=== PATIENT | female | born 1945 | race Two or more races ===

== ENCOUNTER 2021-02-25 09:30 | Inpatient (IN) | payer MEDICARE, OTHER ==
[~2021-02-25] VITALS: Ht 165.1 cm; Wt 80.7 kg
[2021-02-25 11:06] LABS: Basophils # (auto) 0 10 ^3/uL (0-0.2); Basophils % (auto) 0.2 % (0.0-2.0); Eosinophils # (auto) 0.1 10 ^3/uL (0-0.8); Hematocrit 52.7 % (36.0-46.0); Mean Corpuscular Volume 96.8 fL (80.0-100.0); Nucleated Red Blood Cells % 0.1 %
[2021-02-25 11:08] LABS: Eosinophils % (auto) 0.6 % (0.0-7.0); Hemoglobin 18.4 g/dL (12.2-16.2); Lymphocytes % (auto) 6.4 % (10.0-50.0); Mean Corpuscular Hemoglobin 33.8 pg (28.0-32.0); Monocytes # (auto) 1.1 10 ^3/uL (0-1.3); Monocytes % (auto) 6.5 % (0.0-12.0); Neutrophils # (auto) 14.2 10 ^3/uL (1.6-8.6); Neutrophils % (auto) 86.3 % (37.0-80.0); Red Blood Cells 5.44 10^6/uL (4.0-5.20); Red Cell Distribution Width 13.6 % (11.8-14.3); White Blood Cell 16.4 10^3/uL (4.4-10.8)
[2021-02-25 11:37] LABS: Potassium 3.8 mmol/L (3.5-5.1)
[2021-02-25 11:43] LABS: Albumin 3.3 g/dL (3.4-5.0); BUN/Creatinine Ratio 25.4; Bilirubin, Total 0.4 mg/dL (0.2-1.0); Calcium 8.8 mg/dL (8.5-10.1); Total Protein 7.6 g/dL (6.4-8.2)
[2021-02-25] MEDS ORDERED: SODIUM CHLORIDE 0.9% 1,000 ML IV ONE (13:45)
[2021-02-25 16:28] LABS: Urine Bacteria MOD /hpf (None Seen); Urine Blood Negative /uL (Negative); Urine Mucus FEW (None Seen); Urine Specific Gravity 1.024 (1.001-1.035); Urine WBC 4 /hpf (0 - 5)
[2021-02-25] MEDS ORDERED: metroNIDAZOLE 500MG/100ML 100 ML IV ONE (18:30)
[2021-02-25] MEDS ORDERED: VANCOMYCIN HCL 500MG/5ML ORAL SOL PO SCH (22:00)
[2021-02-25] MEDS ORDERED: ONDANSETRON HCL 4 MG/2 ML VIAL IV PRN (22:45)
[2021-02-25] MEDS ORDERED: ACETAMINOPHEN 325 MG TAB PO PRN (22:45)
[2021-02-25] MEDS ORDERED: NITROGLYCERIN 0.4 MG SL TAB SL PRN (22:45)
[2021-02-25] MEDS ORDERED: MORPHINE SULF INJ 2 MG/ML SYRINGE 1ML IV PRN (22:45)
[2021-02-25] MEDS ORDERED: HYDROcodone-ACET 5/325MG TAB PO PRN (22:45)
[2021-02-26] VITALS (7 sets, daily range): BP systolic 105–122; BP diastolic 43–66
[2021-02-26] MEDS: SODIUM CHLORIDE 0.9% 1,000 ML IV SCH ×2 (00:07→16:41)
[2021-02-26] MEDS ORDERED: ASPI-231 PO (02:24)
[2021-02-26] MEDS ORDERED: SIMV-13 PO (02:24)
[2021-02-26] MEDS ORDERED: POM PO (02:24)
[2021-02-26] MEDS ORDERED: LEVO25TA6 PO (02:24)
[2021-02-26] MEDS ORDERED: CHOL100047 PO (02:24)
[2021-02-26] MEDS ORDERED: [UNRECOGNIZED DRUG - CODE] PO (02:24)
[2021-02-26] MEDS ORDERED: OMEG1CAP31 PO (02:24)
[2021-02-26] MEDS: metroNIDAZOLE 500MG/100ML 100 ML IV SCH ×3 (05:52→21:39)
[2021-02-26] MEDS: SODIUM CHLOR 0.9% PF (SALINE LOCK) 10ML VIAL/SYR IV SCH ×3 (05:52→21:40)
[2021-02-26 06:05] LABS: Basophils # (auto) 0 10 ^3/uL (0-0.2); Basophils % (auto) 0.1 % (0.0-2.0); Eosinophils # (auto) 0.2 10 ^3/uL (0-0.8); Eosinophils % (auto) 1.4 % (0.0-7.0); Hematocrit 46.3 % (36.0-46.0); Hemoglobin 16.1 g/dL (12.2-16.2); Lymphocytes # (auto) 1.4 10 ^3/uL (0.4-5.4); Lymphocytes % (auto) 11.4 % (10.0-50.0); Mean Corpuscular Hemoglobin 33.9 pg (28.0-32.0); Mean Corpuscular Hgb Conc. 34.9 g/dL (32.0-36.0); Mean Corpuscular Volume 97.1 fL (80.0-100.0); Monocytes # (auto) 1.2 10 ^3/uL (0-1.3); Monocytes % (auto) 9.9 % (0.0-12.0); Neutrophils # (auto) 9.2 10 ^3/uL (1.6-8.6); Neutrophils % (auto) 77.2 % (37.0-80.0); Red Blood Cells 4.76 10^6/uL (4.0-5.20); Red Cell Distribution Width 13.4 % (11.8-14.3); White Blood Cell 11.9 10^3/uL (4.4-10.8)
[2021-02-26 06:16] LABS: Potassium 3.8 mmol/L (3.5-5.1)
[2021-02-26 06:24] LABS: Albumin 2.7 g/dL (3.4-5.0); BUN/Creatinine Ratio 20.3; Bilirubin, Total 0.4 mg/dL (0.2-1.0); Calcium 8.3 mg/dL (8.5-10.1); Total Protein 6.5 g/dL (6.4-8.2)
[2021-02-26] MEDS ORDERED: cefTRIAXone 1GM/50ML D5W 50 ML IV SCH (09:00)
[2021-02-26] MEDS: ZINC SULFATE 220mg CAP or TAB PO SCH (09:13)
[2021-02-26] MEDS: ENOXAPARIN SOD 40 MG/0.4 ML SYRINGE SC SCH (09:13)
[2021-02-26] MEDS: MULTIPLE VITAMIN TAB PO SCH (09:13)
[2021-02-26] MEDS: ASCORBIC ACID 500 MG TAB PO SCH ×2 (09:14→21:39)
[2021-02-26] MEDS: FAMOTIDINE 20 MG TAB PO SCH ×2 (09:14→21:39)
[2021-02-26] MEDS: VANCOMYCIN HCL 125MG/5ML ORAL SOL PO SCH ×2 (17:25→21:40)
[2021-02-27 05:00] VITALS: BP 102/52
[2021-02-27] MEDS: SODIUM CHLOR 0.9% PF (SALINE LOCK) 10ML VIAL/SYR IV SCH ×3 (05:54→21:34)
[2021-02-27] MEDS: metroNIDAZOLE 500MG/100ML 100 ML IV SCH ×3 (05:54→21:18)
[2021-02-27] MEDS: VANCOMYCIN HCL 125MG/5ML ORAL SOL PO SCH ×4 (05:55→21:20)
[2021-02-27 09:00] VITALS: BP 99/53
[2021-02-27] MEDS: SODIUM CHLORIDE 0.9% 1,000 ML IV SCH (09:10)
[2021-02-27] MEDS: FAMOTIDINE 20 MG TAB PO SCH ×2 (09:10→21:19)
[2021-02-27] MEDS: ENOXAPARIN SOD 40 MG/0.4 ML SYRINGE SC SCH (09:10)
[2021-02-27] MEDS: ZINC SULFATE 220mg CAP or TAB PO SCH (09:11)
[2021-02-27] MEDS: MULTIPLE VITAMIN TAB PO SCH (09:11)
[2021-02-27] MEDS: ASCORBIC ACID 500 MG TAB PO SCH ×2 (09:11→21:19)
[2021-02-27] MEDS: LACTATED RINGER'S 1,000 ML IV SCH ×2 (10:28→21:33)
[2021-02-27 13:00] VITALS: BP 130/76
[2021-02-27 17:00] VITALS: BP 112/56
[2021-02-27 22:00] VITALS: BP 144/62
[2021-02-27] MEDS ORDERED: ATORVASTATIN 20 MG TAB PO SCH (22:00)
[2021-02-28] MEDS: LACTATED RINGER'S 1,000 ML IV SCH ×2 (02:15→06:39)
[2021-02-28 05:00] VITALS: BP 126/71
[2021-02-28] MEDS: metroNIDAZOLE 500MG/100ML 100 ML IV SCH ×2 (05:46→13:24)
[2021-02-28] MEDS: VANCOMYCIN HCL 125MG/5ML ORAL SOL PO SCH ×2 (05:47→11:33)
[2021-02-28] MEDS: SODIUM CHLOR 0.9% PF (SALINE LOCK) 10ML VIAL/SYR IV SCH ×2 (05:47→12:35)
[2021-02-28] MEDS ORDERED: LEVOTHYROXINE SODIUM 25 MCG TAB PO SCH (07:00)
[2021-02-28 08:30] VITALS: BP 130/75
[2021-02-28] MEDS: FAMOTIDINE 20 MG TAB PO SCH (10:16)
[2021-02-28] MEDS: ZINC SULFATE 220mg CAP or TAB PO SCH (10:16)
[2021-02-28] MEDS: ASCORBIC ACID 500 MG TAB PO SCH (10:16)
[2021-02-28] MEDS: ENOXAPARIN SOD 40 MG/0.4 ML SYRINGE SC SCH (10:16)
[2021-02-28] MEDS: MULTIPLE VITAMIN TAB PO SCH (10:16)
[2021-02-28 12:23] VITALS: BP 142/77
== END 2021-02-28 17:10 | disposition home or self-care (01) | DRG 872 ==
LOC: ER 09:30 → EDBD 09:30 → WEST WING 22:40
PROVIDERS: ADMIT Nurse Practitioner Family; ATTEND Family Medicine
DX: A41.9 Sepsis, unspecified organism (principal); A04.72 Enterocolitis due to Clostridium difficile, not specified as recurrent; E44.1 Mild protein-calorie malnutrition; K57.92 Diverticulitis of intestine, part unspecified, without perforation or abscess without bleeding; N39.0 Urinary tract infection, site not specified; I10 Essential (primary) hypertension; E03.9 Hypothyroidism, unspecified; E86.0 Dehydration; F17.210 Nicotine dependence, cigarettes, uncomplicated; Z90.710 Acquired absence of both cervix and uterus; Z98.51 Tubal ligation status; Z90.49 Acquired absence of other specified parts of digestive tract; Z20.822 Contact with and (suspected) exposure to COVID-19; Z68.27 Body mass index [BMI] 27.0-27.9, adult
CPT/HCPCS: 36415; 71045; 74176; 80053; 81001; 84443; 85025; 85049; 87045; 87086; 87426; 87427; 87493; 93005; 96361; 96365; 96367; G0378; J0696; J2405; J3490

== ENCOUNTER 2023-04-06 11:04 | Inpatient (IN) | payer BC, OTHER ==
[~2023-04-06] VITALS: Ht 165.1 cm; Wt 80.1 kg
[~2023-04-06 11:04] MED LIST: ASPI1TAB20 PO; CHOL100047 PO; LEVO25TA6 PO; OMEG-28 PO; POM PO; SIMV40TA18 PO; [UNRECOGNIZED DRUG - CODE] PO
[2023-04-06 11:55] LABS: Basophils # (auto) 0 10 ^3/uL (0-0.2); Eosinophils # (auto) 0.1 10 ^3/uL (0-0.8); Hemoglobin 18.1 g/dL (12.2-16.2); Lymphocytes # (auto) 1.8 10 ^3/uL (0.4-5.4); Neutrophils % (auto) 77.5 % (37.0-80.0); Red Cell Distribution Width 14.3 % (11.8-14.3)
[2023-04-06 11:56] LABS: Basophils % (auto) 0.3 % (0.0-2.0); Hematocrit 53.4 % (36.0-46.0); Lymphocytes % (auto) 15.4 % (10.0-50.0); Mean Corpuscular Hemoglobin 32.8 pg (28.0-32.0); Mean Corpuscular Hgb Conc. 33.9 g/dL (32.0-36.0); Mean Corpuscular Volume 96.9 fL (80.0-100.0); Monocytes # (auto) 0.7 10 ^3/uL (0-1.3); Monocytes % (auto) 5.8 % (0.0-12.0); Neutrophils # (auto) 9.2 10 ^3/uL (1.6-8.6); Red Blood Cells 5.52 10^6/uL (4.0-5.20); White Blood Cell 11.9 10^3/uL (4.4-10.8)
[2023-04-06 12:06] LABS: Albumin 3.6 g/dL (3.4-5.0); Calcium 9.6 mg/dL (8.5-10.1); Potassium 4.6 mmol/L (3.5-5.1)
[2023-04-06 12:09] LABS: BUN/Creatinine Ratio 19.5 (10.0-20.0); Bilirubin, Total 0.6 mg/dL (0.2-1.0); Total Protein 7.5 g/dL (6.4-8.2)
[2023-04-06 12:23] LABS: INR 1.09 (0.9-1.15); Prothrombin Time 11.4 sec (9.3-11.8)
[2023-04-06] MEDS ORDERED: IOHEXOL 350 MG/ML 100ML IJ ONE (13:55)
[2023-04-06] MEDS ORDERED: IPRATROPIUM BROM 0.5 MG/2.5ML INH SOL NEB PRN (15:00)
[2023-04-06] MEDS ORDERED: IPRATROPIUM BROM 0.5 MG/2.5ML INH SOL NEB SCH (15:00)
[2023-04-06] MEDS ORDERED: ALBUTEROL SULF 2.5 MG/0.5ML(0.5%) NEB SOLN NEB PRN (15:00)
[2023-04-06] MEDS ORDERED: ALBUTEROL SULF 2.5 MG/0.5ML(0.5%) NEB SOLN NEB SCH (15:00)
[2023-04-06 15:09] VITALS: BP 146/86; PULSE 119; RESP 18; TEMP 98.1; O2SAT 94
[2023-04-06 15:14] VITALS: O2SAT 94; O2SAT 99
[2023-04-06] MEDS ORDERED: HYDROcodone-ACET 5/325MG TAB PO PRN (15:15)
[2023-04-06] MEDS ORDERED: ACETAMINOPHEN 325 MG TAB PO PRN (15:15)
[2023-04-06] MEDS ORDERED: ONDANSETRON HCL 4 MG/2 ML VIAL IV PRN (15:15)
[2023-04-06] MEDS ORDERED: DOCUSATE SOD 100 MG CAP PO PRN (15:15)
[2023-04-06] MEDS: predniSONE 20 MG TAB PO SCH (15:48)
[2023-04-06 18:20] VITALS: PULSE 104; RESP 72; O2SAT 95
[2023-04-06 18:38] VITALS: PULSE 20; RESP 22; O2SAT 96
[2023-04-06] MEDS: IPRATROPIUM BROM 0.5 MG/2.5ML INH SOL NEB SCH (18:47)
[2023-04-06] MEDS: ALBUTEROL SULF 2.5 MG/0.5ML(0.5%) NEB SOLN NEB SCH (18:47)
[2023-04-06] MEDS: FATTY ACIDS PO SCH (21:28)
[2023-04-06] MEDS: SODIUM CHLOR 0.9% PF (SALINE LOCK) 10ML VIAL/SYR IV SCH (21:28)
[2023-04-06] MEDS: CHOLECALCIFEROL (VITD3) 1,000UNIT=25mCg TAB PO SCH (21:28)
[2023-04-06] MEDS: OMEGA PO SCH (21:28)
[2023-04-06] MEDS: ATORVASTATIN 20 MG TAB PO SCH (21:28)
[2023-04-07] VITALS (12 sets, daily range): PULSE 85–103; RESP 15–27; O2SAT 93–97
[2023-04-07] MEDS: ALBUTEROL SULF 2.5 MG/0.5ML(0.5%) NEB SOLN NEB SCH ×5 (00:37→23:48)
[2023-04-07] MEDS: IPRATROPIUM BROM 0.5 MG/2.5ML INH SOL NEB SCH ×5 (00:38→23:48)
[2023-04-07 05:24] LABS: Urine Bacteria NONE SEEN /hpf (None Seen); Urine Blood Negative /uL (Negative); Urine Clarity Clear (Clear); Urine Color Yellow (Yellow); Urine Protein, UAD Negative (Negative); Urine Specific Gravity 1.032 (1.001-1.035); Urine Urobilinogen Normal (Negative); Urine WBC <1 /hpf (0 - 5)
[2023-04-07] MEDS: SODIUM CHLOR 0.9% PF (SALINE LOCK) 10ML VIAL/SYR IV SCH ×3 (06:05→22:18)
[2023-04-07] MEDS: LEVOTHYROXINE SODIUM 25 MCG TAB PO SCH (06:30)
[2023-04-07] MEDS: predniSONE 20 MG TAB PO SCH (12:00)
[2023-04-07] MEDS: ENOXAPARIN SOD 40 MG/0.4 ML SYRINGE SC SCH (12:00)
[2023-04-07] MEDS: ASPirin-EC 81 mg tab PO SCH (12:00)
[2023-04-07] MEDS: CHOLECALCIFEROL (VITD3) 1,000UNIT=25mCg TAB PO SCH ×2 (12:00→22:18)
[2023-04-07] MEDS: AZITHROMYCIN 500MG/ 250ML 250 ML IV SCH (12:01)
[2023-04-07] MEDS: DOCUSATE SODIUM 250 MG PO SCH (12:19)
[2023-04-07] MEDS: FATTY ACIDS PO SCH ×2 (12:19→22:00)
[2023-04-07] MEDS: OMEGA PO SCH ×2 (12:19→22:00)
[2023-04-07] MEDS: cefTRIAXone 1GM/50ML D5W 50 ML IV SCH (14:59)
[2023-04-07] MEDS: ATORVASTATIN 20 MG TAB PO SCH (22:18)
[2023-04-08] VITALS (13 sets, daily range): BP systolic 99–123; BP diastolic 48–74; PULSE 76–112; RESP 16–22; TEMP 86–98.6; O2SAT 91–98
[2023-04-08] MEDS: IPRATROPIUM BROM 0.5 MG/2.5ML INH SOL NEB SCH ×4 (05:36→22:46)
[2023-04-08] MEDS: ALBUTEROL SULF 2.5 MG/0.5ML(0.5%) NEB SOLN NEB SCH ×4 (05:36→22:46)
[2023-04-08] MEDS: SODIUM CHLOR 0.9% PF (SALINE LOCK) 10ML VIAL/SYR IV SCH ×3 (06:10→23:34)
[2023-04-08] MEDS: LEVOTHYROXINE SODIUM 25 MCG TAB PO SCH (06:46)
[2023-04-08] MEDS: cefTRIAXone 1GM/50ML D5W 50 ML IV SCH (09:17)
[2023-04-08] MEDS: OMEGA PO SCH ×2 (10:00→22:00)
[2023-04-08] MEDS: DOCUSATE SODIUM 250 MG PO SCH (10:00)
[2023-04-08] MEDS: FATTY ACIDS PO SCH ×2 (10:00→22:00)
[2023-04-08] MEDS: AZITHROMYCIN 500MG/ 250ML 250 ML IV SCH (10:51)
[2023-04-08] MEDS: ASPirin-EC 81 mg tab PO SCH (10:51)
[2023-04-08] MEDS: CHOLECALCIFEROL (VITD3) 1,000UNIT=25mCg TAB PO SCH ×2 (10:51→23:32)
[2023-04-08] MEDS: predniSONE 20 MG TAB PO SCH (10:52)
[2023-04-08] MEDS: ENOXAPARIN SOD 40 MG/0.4 ML SYRINGE SC SCH (10:52)
[2023-04-08] MEDS ORDERED: ALBUAER3 IN (11:48)
[2023-04-08 14:32] LABS: Hepatitis B Surface Antibody Negative (Negative)
[2023-04-08 18:11] LABS: Hepatitis C Antibody Negative (Negative)
[2023-04-08] MEDS: ATORVASTATIN 20 MG TAB PO SCH (22:00)
[2023-04-09] VITALS (10 sets, daily range): BP systolic 107–132; BP diastolic 54–73; PULSE 77–103; RESP 16–20; TEMP 98.1–98.4; O2SAT 90–94
[2023-04-09] MEDS: ALBUTEROL SULF 2.5 MG/0.5ML(0.5%) NEB SOLN NEB SCH ×3 (06:00→19:24)
[2023-04-09] MEDS: IPRATROPIUM BROM 0.5 MG/2.5ML INH SOL NEB SCH ×3 (06:00→19:24)
[2023-04-09] MEDS: LEVOTHYROXINE SODIUM 25 MCG TAB PO SCH (06:24)
[2023-04-09] MEDS: SODIUM CHLOR 0.9% PF (SALINE LOCK) 10ML VIAL/SYR IV SCH ×2 (06:25→15:14)
[2023-04-09] MEDS: cefTRIAXone 1GM/50ML D5W 50 ML IV SCH (09:25)
[2023-04-09] MEDS: predniSONE 20 MG TAB PO SCH (09:25)
[2023-04-09] MEDS: ASPirin-EC 81 mg tab PO SCH (09:25)
[2023-04-09] MEDS: ENOXAPARIN SOD 40 MG/0.4 ML SYRINGE SC SCH (09:26)
[2023-04-09] MEDS: CHOLECALCIFEROL (VITD3) 1,000UNIT=25mCg TAB PO SCH ×2 (09:26→22:00)
[2023-04-09] MEDS: FATTY ACIDS PO SCH ×2 (10:00→22:00)
[2023-04-09] MEDS: DOCUSATE SODIUM 250 MG PO SCH (10:00)
[2023-04-09] MEDS: OMEGA PO SCH ×2 (10:00→22:00)
[2023-04-09] MEDS: AZITHROMYCIN 500MG/ 250ML 250 ML IV SCH (11:29)
[2023-04-09] MEDS ORDERED: PRED1PAK7 PO (17:11)
[2023-04-09] MEDS ORDERED: LEVO750T8 PO (17:11)
[2023-04-09] MEDS ORDERED: ALBU1.258 IN (17:13)
[2023-04-09] MEDS: ATORVASTATIN 20 MG TAB PO SCH (22:00)
[2023-04-10] VITALS (9 sets, daily range): BP systolic 110–135; BP diastolic 65–93; PULSE 60–103; RESP 17–20; TEMP 92.8–97.3; O2SAT 92–100
[2023-04-10] MEDS: IPRATROPIUM BROM 0.5 MG/2.5ML INH SOL NEB SCH ×3 (00:07→12:14)
[2023-04-10] MEDS: ALBUTEROL SULF 2.5 MG/0.5ML(0.5%) NEB SOLN NEB SCH ×3 (00:07→12:15)
[2023-04-10] MEDS: SODIUM CHLOR 0.9% PF (SALINE LOCK) 10ML VIAL/SYR IV SCH ×3 (01:33→18:01)
[2023-04-10] MEDS: LEVOTHYROXINE SODIUM 25 MCG TAB PO SCH (06:06)
[2023-04-10] MEDS: FATTY ACIDS PO SCH (10:00)
[2023-04-10] MEDS: OMEGA PO SCH (10:00)
[2023-04-10] MEDS: DOCUSATE SODIUM 250 MG PO SCH (10:00)
[2023-04-10] MEDS: CHOLECALCIFEROL (VITD3) 1,000UNIT=25mCg TAB PO SCH (11:17)
[2023-04-10] MEDS: ASPirin-EC 81 mg tab PO SCH (11:17)
[2023-04-10] MEDS: predniSONE 20 MG TAB PO SCH (11:17)
[2023-04-10] MEDS: cefTRIAXone 1GM/50ML D5W 50 ML IV SCH (11:17)
[2023-04-10] MEDS: ENOXAPARIN SOD 40 MG/0.4 ML SYRINGE SC SCH (11:18)
[2023-04-10] MEDS: AZITHROMYCIN 500MG/ 250ML 250 ML IV SCH (12:20)
== END 2023-04-10 19:00 | disposition home health service (06) | DRG 189 ==
LOC: ER 11:04 → TELE 15:04 → TELE-EAST 04-08 10:10
PROVIDERS: ADMIT Internal Medicine; ATTEND Internal Medicine
DX: J96.01 Acute respiratory failure with hypoxia (principal); J44.1 Chronic obstructive pulmonary disease with (acute) exacerbation; F17.210 Nicotine dependence, cigarettes, uncomplicated; D72.829 Elevated white blood cell count, unspecified; Z90.710 Acquired absence of both cervix and uterus; Z90.49 Acquired absence of other specified parts of digestive tract; Z98.51 Tubal ligation status; Z95.810 Presence of automatic (implantable) cardiac defibrillator; Z80.0 Family history of malignant neoplasm of digestive organs
CPT/HCPCS: 36415; 36600; 71045; 71275; 80053; 81001; 82805; 83605; 83880; 84484; 85025; 85379; 85610; 86706; 86803; 93005; 93306; 94010; 94640; 96365; G0378; J0696

== ENCOUNTER 2024-06-11 17:19 | Emergency (ER) | payer BC, OTHER, MEDICAID ==
[~2024-06-11] VITALS: Ht 160 cm; Wt 81.8 kg
[~2024-06-11 17:19] MED LIST changes: +ALBU1.258 IN; +ALBUAER3 IN; +LEVO750T8 PO; -POM PO; +PRED1PAK7 PO
[2024-06-11 18:00] VITALS: PULSE 81; RESP 18; O2SAT 96
[2024-06-11 19:15] LABS: Basophils # (auto) 0 10 ^3/uL (0-0.2); Basophils % (auto) 0.3 % (0.0-2.0); Eosinophils # (auto) 0.1 10 ^3/uL (0-0.8); Eosinophils % (auto) 0.8 % (0.0-7.0); Hematocrit 47.4 % (36.0-46.0); Hemoglobin 16.1 g/dL (12.2-16.2); Lymphocytes # (auto) 1.9 10 ^3/uL (0.4-5.4); Lymphocytes % (auto) 19.8 % (10.0-50.0); Mean Corpuscular Hemoglobin 33.4 pg (28.0-32.0); Mean Corpuscular Hgb Conc. 33.9 g/dL (32.0-36.0); Mean Corpuscular Volume 98.6 fL (80.0-100.0); Monocytes # (auto) 0.7 10 ^3/uL (0-1.3); Monocytes % (auto) 6.9 % (0.0-12.0); Neutrophils % (auto) 72.2 % (37.0-80.0); Nucleated Red Blood Cells % 0.1 %; Platelet Count (auto) 242 10^3/uL (140-450); Red Blood Cells 4.81 10^6/uL (4.0-5.20); White Blood Cell 9.7 10^3/uL (4.4-10.8)
[2024-06-11 19:31] VITALS: PULSE 76; RESP 17; O2SAT 96
[2024-06-11 19:35] LABS: Alanine Aminotransferase 31 U/L (7-40); Alkaline Phosphatase 152 U/L (46-116); Anion Gap 8 (5-15); Aspartate Aminotransferase 23 U/L (13-40); BUN/Creatinine Ratio 23.5 (10.0-20.0); Bilirubin, Total 0.5 mg/dL (0.2-1.0); Blood Urea Nitrogen 20 mg/dL (9-23); CRP High Sensitivity 0.48 mg/dL (<1.0); Calcium 9.3 mg/dL (8.7-10.4); Carbon Dioxide 25 mmol/L (20-31); Chloride 109 mmol/L (98-107); Glucose 120 mg/dL (74-106); Sodium 142 mmol/L (136-145); Total Protein 6.7 g/dL (5.7-8.2)
[2024-06-11 19:59] LABS: Erythrocyte Sedimentation Rate 8 mm/hr (0-20)
[2024-06-11] MEDS: IOHEXOL 300 MG/ML 100ML BOTTLE IJ ONE (21:08)
[2024-06-11] MEDS: HYDROcodone-ACET 5/325MG TAB PO ONE (23:00)
[2024-06-12 02:10] VITALS: TEMP 98.5
[2024-06-12 08:23] VITALS: O2SAT 97
[2024-06-12 11:58] VITALS: BP 123/62; PULSE 88; RESP 22; O2SAT 95
== END 2024-06-12 13:05 | disposition home or self-care (01) ==
LOC: EDBD 17:19 → ER 17:20
DX: M25.562 Pain in left knee (principal); J44.9 Chronic obstructive pulmonary disease, unspecified; E78.5 Hyperlipidemia, unspecified; F17.210 Nicotine dependence, cigarettes, uncomplicated; Z90.49 Acquired absence of other specified parts of digestive tract; Z90.710 Acquired absence of both cervix and uterus; Z98.890 Other specified postprocedural states; Z79.82 Long term (current) use of aspirin; Z79.899 Other long term (current) drug therapy; Z79.52 Long term (current) use of systemic steroids; Z99.81 Dependence on supplemental oxygen
CPT/HCPCS: 36415; 73701; 80053; 83605; 85025; 85652; 86141; 93971; 99285; Q9967